=== PATIENT | female | born 1955 ===

== ENCOUNTER 2019-02-17 16:55 | Emergency (ER) | payer SELFPAY ==
--- NOTE | 2019-02-17 17:57 | RAD ---
THREE VIEWS LEFT ANKLE: 02/17/19 HISTORY: Left ankle pain. FINDINGS: The ankle mortise is congruent. There is no evidence of a fracture, dislocation, or other osseous abn ormality involving the left ankle. The calcaneus is excluded from view on this exam. IMPRESSION: No acute osseous abnormality. POS: [facility]
== END 2019-02-17 18:58 | disposition home or self-care (01) ==
LOC: ERS 16:55
DX: S90.02XA Contusion of left ankle, initial encounter (principal); E11.9 Type 2 diabetes mellitus without complications; Z87.891 Personal history of nicotine dependence; W20.8XXA Other cause of strike by thrown, projected or falling object, initial encounter